=== PATIENT | female | born 1970 | race Caucasian/White ===

== ENCOUNTER → 2023-06-11 | Outpatient (CLI) | payer OTHER | END | disposition home or self-care (01) | LOC: US 06-09 02:07 | PROVIDERS: ATTEND Obstetrics & Gynecology | DX: R10.2 Pelvic and perineal pain (principal); Z90.710 Acquired absence of both cervix and uterus ==

== ENCOUNTER → 2023-09-20 | Outpatient (CLI) | payer OTHER | END | disposition home or self-care (01) | LOC: LAB 16:01 | PROVIDERS: ATTEND Internal Medicine Critical Care Medicine | DX: R53.83 Other fatigue (principal); M25.50 Pain in unspecified joint ==

== ENCOUNTER → 2023-10-04 | Outpatient (CLI) | payer OTHER | END | disposition home or self-care (01) | LOC: CT 01:42 | PROVIDERS: ATTEND Internal Medicine Critical Care Medicine | DX: Z01.818 Encounter for other preprocedural examination (principal); J43.9 Emphysema, unspecified; K44.9 Diaphragmatic hernia without obstruction or gangrene; R59.0 Localized enlarged lymph nodes ==